=== PATIENT | male | born 1960 | race Caucasian/White ===

== ENCOUNTER 2021-11-08 07:06 | Emergency (ER) | payer BC, OTHER ==
--- NOTE | 2021-11-08 07:23 | EDM.PDOC ---
ED HPI GENERAL MEDICAL PROBLEM - General Chief Complaint: General Stated Complaint: head congestion Time Seen by Provider: 11/08/21 07:08 Source of Information: Reports: Patient History Limitations: Reports: No Limitations - History of Present Illness INITIAL COMMENTS - FREE TEXT/NARRATIVE: Patient is a 61-year-old male no past medical history presents today for body aches congestion some nausea and vomiting few days ago. Patient says that he just feels not himself feels very tired and weak from his baseline. Denies any shortness of breath denies any productive cough denies any fevers. Patient not take any medication [id number] for the symptoms. - Related Data Allergies Allergy/AdvReac Type Severity Reaction Status Date / Time No Known Allergies Allergy Verified 11/08/21 07:18 Home Meds: Home Meds Escitalopram [Lexapro] 20 mg PO DAILY 11/08/21 [History] Losartan [Cozaar] 50 mg PO DAILY 11/08/21 [History] Montelukast [Singulair] 10 mg PO DAILY 11/08/21 [History] Simvastatin 20 mg PO 11/08/21 [History] ED ROS GENERAL - Review of Systems Review Of Systems: See Below Constitutional: Reports: Chills, Malaise HEENT: Reports: No Symptoms Respiratory: Reports: No Symptoms Cardiovascular: Reports: No Symptoms Endocrine: Reports: No Symptoms GI/Abdominal: Reports: No Symptoms : Reports: No Symptoms Musculoskeletal: Reports: No Symptoms Skin: Reports: No Symptoms Neurological: Reports: No Symptoms Psychiatric: Reports: No Symptoms Hematologic/Lymphatic: Reports: No Symptoms Immunologic: Reports: No Symptoms ED EXAM, GENERAL - Physical Exam Exam: See Below Exam Limited By: No Limitations General Appearance: Alert, WD/WN, No Apparent Distress Eye Exam: Bilateral Eye: EOMI, PERRL Head: Atraumatic Respiratory/Chest: No Respiratory Distress, Lungs Clear, Normal Breath Sounds Cardiovascular: Normal Peripheral Pulses, Regular Rate, Rhythm GI/Abdominal: Normal Bowel Sounds, Soft, Non-Tender Extremities: Normal Inspection, Normal Range of Motion Neurological: Alert, Oriented, Normal Cognition, Normal Gait Course - Vital Signs Last Recorded V/S: Last Vital Signs Temp 97.2 F 11/08/21 07:15 Pulse 96 11/08/21 07:15 Resp 18 11/08/21 07:15 BP 141/84 H 11/08/21 07:15 Pulse Ox 97 11/08/21 07:15 - Orders/Labs/Meds Labs: Laboratory Tests 11/08/21 11/08/21 11/08/21 Range/Units 07:22 07:28 07:28 WBC 5.91 (4.0-11.0) K/uL RBC 5.11 (4.50-5.90) M/uL Hgb 15.4 (13.0-17.0) g/dL Hct 45.6 (38.0-50.0) % MCV 89.2 (80.0-98.0) fL MCH 30.1 (27.0-32.0) pg MCHC 33.8 (31.0-37.0) g/dL RDW Std Deviation 43.8 (28.0-62.0) fl RDW Coeff of Kai 13 (11.0-15.0) % Plt Count 145 L (150-400) K/uL MPV 9.90 (7.40-12.00) fL Neut % (Auto) 65.5 (48.0-80.0) % Lymph % (Auto) 24.4 (16.0-40.0) % Granite % (Auto) 9.6 (0.0-15.0) % Eos % (Auto) 0.2 (0.0-7.0) % Baso % (Auto) 0.3 (0.0-1.5) % Neut # (Auto) 3.9 (1.4-5.7) K/uL Lymph # (Auto) 1.4 (0.6-2.4) K/uL Granite # (Auto) 0.6 (0.0-0.8) K/uL Eos # (Auto) 0.0 (0.0-0.7) K/uL Baso # (Auto) 0.0 (0.0-0.1) K/uL Nucleated RBC % 0.0 /100WBC Nucleated RBCs # 0 K/uL Sodium 136 (136-148) mmol/L Potassium 3.9 (3.5-5.1) mmol/L Chloride 100 (98-107) mmol/L Carbon Dioxide 26.1 (21.0-32.0) mmol/L BUN 15 (7.0-18.0) mg/dL Creatinine 1.3 (0.8-1.3) mg/dL Est Cr Clr Drug Dosing 61.18 mL/min Estimated GFR (MDRD) 56.5 ml/min Glucose 213 H (74-106) mg/dL Calcium 8.4 L (8.5-10.1) mg/dL Total Bilirubin 0.4 (0.2-1.0) mg/dL AST 23 (15-37) IU/L ALT 35 (14-63) IU/L Alkaline Phosphatase 69 (46-116) U/L Total Protein 7.8 (6.4-8.2) g/dL Albumin 3.9 (3.4-5.0) g/dL Globulin 3.9 (2.6-4.0) g/dL Albumin/Globulin Ratio 1.0 (0.9-1.6) SARS-CoV-2 RNA (MARYANA) POSITIVE H (NEGATIVE) - Re-Assessments/Exams Free Text/Narrative Re-Assessment/Exam: 11/08/21 08:13 Pt is covid Positive likely source patient's symptoms. Departure - Departure Time of Disposition: 08:13 Disposition: Home, Self-Care 01 Condition: Good Clinical Impression: COVID - Discharge Information *PRESCRIPTION DRUG MONITORING PROGRAM REVIEWED*: Not Applicable *COPY OF PRESCRIPTION DRUG MONITORING REPORT IN PATIENT GIANNI: Not Applicable Instructions: 10 Things You Can Do to Manage Your COVID-19 Symptoms at Home - [facility] (06/13/2021) Forms: ED Department Discharge Additional Instructions: You were seen today for not feeling well. You are Covid positive. This is likely the cause of your symptoms recommend you continue to take [id number] medications as needed and get rest. The following information is given to patients seen in the emergency department who are being discharged to home. This information is to outline your options for follow-up care. We provide all patients seen in our emergency department with a follow-up referral. The need for follow-up, as well as the timing and circumstances, are variable depending upon the specifics of your emergency department visit. If you don't have a primary care physician on staff, we will provide you with a referral. We always advise you to contact your personal physician following an emergency department visit to inform them of the circumstance of the visit and for follow-up with them and/or the need for any referrals to a consulting specialist. The emergency department will also refer you to a specialist when appropriate. This referral assures that you have the opportunity for follow-up care with a specialist. All of these measure are taken in an effort to provide you with optimal care, which includes your follow-up. Under all circumstances we always encourage you to contact your private physician who remains a resource for coordinating your care. When calling for follow-up care, please make the office aware that this follow-up is from your recent emergency room visit. If for any reason you are refused follow-up, please contact the [facility] Emergency Department at and asked to speak to the emergency department charge nurse. Please follow up with your primary care physician. If you do not have a primary care physician, see below: [facility] [address] [place] [id number] [facility] [address] [place] [id number] Sepsis Event Note (ED) - Evaluation Sepsis Screening Result: No Definite Risk - Focused Exam Vital Signs: Vital Signs Temp Pulse Resp BP Pulse Ox 11/08/21 07:15 97.2 F 96 18 141/84 H 97 - Assessment/Plan Plan: Patient is a 61-year-old male who presents today for body aches and fatigue and not feeling well. Patient satting 98% on room air looks well symptoms likely Related to Covid. Will obtain basic labs and reassess.
[2021-11-08 07:55] LABS: CARBON DIOXIDE,CO2 26.1 mmol/L (21.0-32.0); POTASSIUM,K 3.9 mmol/L (3.5-5.1)
== END 2021-11-08 08:34 | disposition home or self-care (01) ==
LOC: MW.ED 07:06
DX: U07.1 COVID-19 (principal)
CPT/HCPCS: 36415; 80053; 85025; 99283; U0002

== ENCOUNTER 2021-11-10 22:15 | Emergency (ER) | payer BC ==
--- NOTE | 2021-11-10 22:33 | EDM.PDOC ---
ED HPI GENERAL MEDICAL PROBLEM - General Chief Complaint: Respiratory Problem Stated Complaint: COVID, DIFFICULTY BREATHING Time Seen by Provider: 11/10/21 22:18 Source of Information: Reports: Patient History Limitations: Reports: No Limitations - History of Present Illness INITIAL COMMENTS - FREE TEXT/NARRATIVE: 61-year-old male presents feeling short of breath. He admits to dyspnea on exertion and ambulation. He was seen here on 11/08 and was diagnosed with Covid with normal blood work otherwise. He received IV Regeneron today. Patient denies chest pain, palpitation. He was not vaccinated for Covid. ROS: A 10-point review of systems, other than pertinent positives and negatives as stated per HPI, is otherwise negative Past medical history: No additional pertinent history Past Surgical history: No additional pertinent history Social history: No additional pertinent history Family history: No additional pertinent history PHYSICAL EXAM General: AOx4, GCS = 15, speaking in full sentences, no distress HEENT: dry mucous membrane Neck: supple, no meningismus, no Kernig or Brudzinski Cardiac: S1S2 RRR Respiratory: CTAB, no crackles or rales, no wheezing Abdomen: Soft, nontender, no rebound or guarding, nondistended, no pulsatile mass. Back: nontender Musculoskeletal: NVI distally, no deformity Neuro: No focal deficits, CN 2 - 12 WNL. - Related Data Allergies Allergy/AdvReac Type Severity Reaction Status Date / Time No Known Allergies Allergy Verified 11/10/21 22:17 Home Meds: Home Meds Escitalopram [Lexapro] 20 mg PO DAILY 11/08/21 [History] Losartan [Cozaar] 50 mg PO DAILY 11/08/21 [History] Montelukast [Singulair] 10 mg PO DAILY 11/08/21 [History] Simvastatin 20 mg PO 11/08/21 [History] Benzonatate 100 mg PO BID #10 capsule 11/10/21 [Rx] Ondansetron [Zofran ODT] 4 mg PO Q6H PRN #12 tab.dis 11/10/21 [Rx] Past Medical History - Past Health History Medical/Surgical History: Denies Medical/Surgical History Cardiovascular History: Reports: High Cholesterol, Hypertension - Infectious Disease History Infectious Disease History: Reports: None Social & Family History - Family History Family Medical History: No Pertinent Family History ED ROS GENERAL - Review of Systems Review Of Systems: See Below (see dictation) ED EXAM, GENERAL - Physical Exam Exam: See Below (see dictation) #1 Interpretation EKG Interpretation Comments: Heart rate = 91 bpm, normal sinus rhythm, normal QRS interval, no STEMI. EKG and rhythm strip interpreted by me at 1021p Course - Vital Signs Last Recorded V/S: Last Vital Signs Temp 98.7 F 11/10/21 22:17 Pulse 98 11/10/21 22:17 Resp 18 11/10/21 22:17 BP 142/84 H 11/10/21 22:17 Pulse Ox 95 11/10/21 22:17 - Orders/Labs/Meds Orders: Active Orders 24 hr Category Date Time Status RT Aerosol Therapy [RC] ASDIRECTED Care 11/10/21 22:42 Active Meds: Medications Discontinued Medications Generic Name Dose Route Start Last Admin Trade Name Freq PRN Reason Stop Dose Admin Albuterol/Ipratropium 3 ml 11/10/21 22:42 11/10/21 22:54 Albuterol/Ipratropium 3.0-0.5 Mg/3 Ml Neb Soln NEB 11/10/21 22:43 3 ml ONETIME ONE Administration - Re-Assessments/Exams Free Text/Narrative Re-Assessment/Exam: 11/10/21 22:40 After ambulating patient in the ER, his oxygen level maintained at 94-95% on RA, and is currently stable for discharge. I performed a repeat exam and did not appreciate new abnormal findings. Patient exhibits normal vital signs and has a normal gait on road test. I advised the patient to return to the ER for reevaluation if symptoms worsened, including fever, worsening pain, or any other worrisome symptoms. I instructed the patient to follow up with their PCP within 2-3 days. MEDICAL DECISION MAKING: This patient was evaluated during the COVID-19 pandemic where resources and capacity might be affected. I reviewed the patients past medical records, lab and radiographic findings. I discussed the case with the patient. My differential diagnosis included: Covid, hypoxia, pneumonia. This patient was evaluated for the symptoms described in the history of present illness. They were evaluated in the context of the global COVID-19 pandemic, which necessitated consideration that the patient might be at risk for infection with the SARS-CoV-2 virus that causes COVID-19. Institutional protocols and algorithms that pertain to the evaluation of patients at risk for COVID-19 are in a state of rapid change based on information released by regulatory bodies including the CDC and federal and state organizations. These policies and algorithms were followed during the patient's care. I wore full PPE, N95, face shield, gown and gloves throughout my evaluation and care of this patient. I recommended home isolation. given home isolation instructions. The patient is well appearing, not in respiratory distress, not hypoxic, no tachyneia, no retractions. I instructed patient to return immediately for worsening symptoms, sob, chest pain, lightheadedness or other concerns. I educated him on using a pulse oximeter at home, and to return to the ER if his oxygen level drops below 90%. Patient voiced understanding and questions answered. Departure - Departure Time of Disposition: 23:13 Disposition: Home, Self-Care 01 Condition: Good Clinical Impression: COVID - Discharge Information *PRESCRIPTION DRUG MONITORING PROGRAM REVIEWED*: Not Applicable *COPY OF PRESCRIPTION DRUG MONITORING REPORT IN PATIENT GIANNI: Not Applicable Prescriptions: Benzonatate 100 mg PO BID #10 capsule Ondansetron [Zofran ODT] 4 mg PO Q6H PRN #12 tab.dis PRN Reason: Vomiting Instructions: COVID-19 Vaccine Information, 10 Things You Can Do to Manage Your COVID-19 Symptoms at Home - CDC (06/13/2021), Symptoms of COVID-19 - CDC (01/20/2021) Forms: ED Department Discharge Additional Instructions: The need for follow-up, as well as the timing and circumstances, are variable depending upon the specifics of your emergency department visit. If you don't have a primary care physician on staff, we will provide you with a referral. We always advise you to contact your personal physician following an emergency department visit to inform them of the circumstance of the visit and for follow-up with them and/or the need for any referrals to a consulting specialist. The emergency department will also refer you to a specialist when appropriate. This referral assures that you have the opportunity for follow-up care with a specialist. All of these measure are taken in an effort to provide you with optimal care, which includes your follow-up. Under all circumstances we always encourage you to contact your private physician who remains a resource for coordinating your care. When calling for follow-up care, please make the office aware that this follow-up is from your recent emergency room visit. If for any reason you are refused follow-up, please contact the [facility] Emergency Department at and asked to speak to the emergency department charge nurse. If you do not have a primary care doctor, please follow up with the clinics below within 3-5 days. [facility] - [facility] [address] [place] [address] [id number] Sepsis Event Note (ED) - Evaluation Sepsis Screening Result: No Definite Risk - Focused Exam Vital Signs: Vital Signs Temp Pulse Resp BP Pulse Ox 11/10/21 22:17 98.7 F 98 18 142/84 H 95 - My Orders Last 24 Hours: My Active Orders 11/10/21 22:42 RT Aerosol Therapy [RC] ASDIRECTED - Assessment/Plan Last 24 Hours: My Active Orders 11/10/21 22:42 RT Aerosol Therapy [RC] ASDIRECTED
--- NOTE | 2021-11-10 22:40 | CR ---
INDICATION: Chest pain TECHNIQUE: Chest radiograph 1 view COMPARISON: None FINDINGS: Mediastinum: The mediastinum is normal in appearance. The heart silhouette is normal in size and morphology. Lung: Minimal linear scarring or atelectasis is seen in the left midlung zone. No sign of pleural effusion seen. No pneumothorax is identified. Bone and Soft tissue: Unremarkable for age. IMPRESSION: 1. Minimal linear scarring or atelectasis is seen in the left midlung zone. Dictated by Kevin Horn MD @ 11/10/2021 10:39:56 PM Dictated by: Kevin Horn MD @ 11/10/2021 22:39:58 (Electronically Signed)
[2021-11-10] MEDS ORDERED: Albuterol/Ipratropium 3.0-0.5 MG/3 ML Neb Soln NEB ONE (22:42)
== END 2021-11-10 23:32 | disposition home or self-care (01) ==
LOC: MW.ED 22:15
DX: U07.1 COVID-19 (principal); E78.00 Pure hypercholesterolemia, unspecified; I10 Essential (primary) hypertension; Z79.899 Other long term (current) drug therapy
CPT/HCPCS: 36415; 71045; 71045-26; 93005; 99285-25; J7620-GY